=== PATIENT | female | born 1960 | race Caucasian/White ===

== ENCOUNTER 2019-03-21 08:05 | Inpatient (IN) | payer BC ==
[~2019-03-21] VITALS: Ht 157.5 cm; Wt 67.7 kg
[2019-03-21 08:24] VITALS: BP 128/68
[2019-03-21 17:26] VITALS: BP 98/59
[2019-03-21 19:59] VITALS: BP 110/63
[2019-03-22 05:29] VITALS: BP 100/55
[2019-03-22 06:28] LABS: PLATELET COUNT 222 x10^3mcL (130-400); RED CELL DISTRIBUTION WIDTH 12.8 % (11.5-14.5)
[2019-03-22 07:11] LABS: BASOPHIL % 0 % (0-2)
[2019-03-22 08:18] LABS: CALCIUM 8.5 mg/dL (8.5-10.1); CARBON DIOXIDE 26.9 mmol/L (21-32); CHLORIDE SERUM 103 mmol/L (98-107); CREATININE SERUM 0.7 mg/dL (0.6-1.0); GFR1 > 60 mL/min; GLUCOSE SERUM 168 mg/dL (74-106); POTASSIUM SERUM 4.7 mmol/L (3.5-5.1); SODIUM SERUM 136 mmol/L (136-145)
[2019-03-22 08:25] VITALS: BP 91/52
[2019-03-22 12:38] VITALS: BP 97/47
[2019-03-22 16:54] VITALS: BP 110/60
[2019-03-22 19:52] VITALS: BP 113/55
[2019-03-23 05:25] VITALS: BP 112/51
[2019-03-23 06:36] LABS: CARBON DIOXIDE 28.2 mmol/L (21-32); CHLORIDE SERUM 109 mmol/L (98-107); CREATININE SERUM 0.6 mg/dL (0.6-1.0); GFR1 > 60 mL/min; GLUCOSE SERUM 98 mg/dL (74-106); POTASSIUM SERUM 4.4 mmol/L (3.5-5.1); SODIUM SERUM 143 mmol/L (136-145)
[2019-03-23 06:43] LABS: BASOPHIL % 0.3 % (0-2); PLATELET COUNT 159 x10^3mcL (130-400); RED CELL DISTRIBUTION WIDTH 12.8 % (11.5-14.5)
[2019-03-23 08:46] VITALS: BP 93/46
[2019-03-23 12:35] VITALS: BP 95/43
[2019-03-23 16:58] VITALS: BP 96/55
== END 2019-03-23 17:35 | disposition home or self-care (01) | DRG 470 ==
LOC: DS 08:05 → MU 12:02
PROVIDERS: ADMIT Orthopaedic Surgery
PROC: 0SRB0JZ Replacement of Left Hip Joint with Synthetic Substitute, Open Approach (ICD-10-PCS; principal; 2019-03-21 10:30)
DX: M16.12 Unilateral primary osteoarthritis, left hip (principal); Z88.2 Allergy status to sulfonamides; Z91.012 Allergy to eggs
CPT/HCPCS: 97112-GP; 97116-GP; 97530-GP; C1776; G0378; J0690; J1100; J1170; J1885; J2250; J2270; J2405; J2704; J3010; J3490; J7030; J7120; Q0092